=== PATIENT | female | born 1940 | race Caucasian/White ===

== ENCOUNTER 2016-07-19 03:08 | Inpatient (IN) ==
[2016-07-10 13:35] LABS: MANUAL DIFF NEEDED? NO
[2016-07-10 13:49] LABS: BASO% 0.8 % (0.0-0.8); EOS% 3.2 % (0.0-10.0); HEMATOCRIT 38.3 % (37.0-47.0); HEMOGLOBIN 12.4 g/dL (12.0-16.0); LYMPH# 2.93 X1000 (1.2-3.4); LYMPH% 46.6 % (20.5-51.1); MCH 31.3 PG (27-31); MCHC 32.4 g/dL (33-37); MCV 96.7 FL (81-99); MONO# 0.49 X1000 (0.11-0.59); MONO% 7.8 % (1.7-9.3); MPV 9.8 FL (7.4-10.4); NEUT% 41.6 % (42.2-75.2); PLT 281 X1000 (130-400); RBC 3.96 XMIL (4.2-5.4)
--- NOTE | 2016-07-10 13:54 | EKG Report ---
Test Performed on : 07/10/2016 1:15:13 PM Test Reason : surg Blood Pressure : / mmHG Vent. Rate : 082 BPM Atrial Rate : 082 BPM P-R Int : 162 ms QRS Dur : 072 ms QT Int : 362 ms P-R-T Axes : 079 063 074 degrees QTc Int : 422 ms Normal sinus rhythm. Normal ECG When compared with ECG of 08-JUN-2011 10:33, No significant change was found Confirmed by Steven KELLY, Timbo Braun ([id number]) on 07/12/2016 9:32:11 PM
[2016-07-10 14:06] LABS: AGAP 10; BUN 6 mg/dL (8-22); CHLORIDE 104 mmol/L (98-107); COSMO 284; POTASSIUM 5.1 mmol/L (3.5-5.1); SODIUM 144 mmol/L (136-145); TCO2 30 mmol/L (25-35)
[2016-07-19] MEDS ORDERED: INVANZ 1 GM/NS 1 GM/50 ML IVPB ONE (06:27)
[2016-07-19] MEDS ORDERED: LR 1,000 ML ONE ×3 (06:27→10:38)
[2016-07-19] MEDS ORDERED: MARCAINE 0.25% PF/EPI 1:200,000 ONE (07:10)
[2016-07-19] MEDS ORDERED: XYLOCAINE 1% ONE (07:11)
[2016-07-19] MEDS ORDERED: ENTEREG ONE (07:54)
[2016-07-19] MEDS ORDERED: ALBUMIN 25% ONE (08:30)
[2016-07-19 08:57] LABS: URINE CULTURE NEEDED? NO; URINE MICRO REVIEW NEEDED? NO; URINE SOURCE CATH
[2016-07-19 09:08] LABS: BILIRUBIN URINE NEGATIVE (NEGATIVE); BLOOD URINE NEGATIVE (NEGATIVE); COLOR YELLOW; GLUCOSE URINE NEGATIVE (NEGATIVE); LEUKOCYTES URINE NEGATIVE (NEGATIVE); NITRITE URINE NEGATIVE (NEGATIVE); PROTEIN URINE NEGATIVE (NEGATIVE); SP GRAVITY URINE 1.005; TURBIDITY URINE CLEAR (CLEAR); UROBILINOGEN URINE NORMAL (NORMAL)
[2016-07-19 09:10] LABS: UR EPITHELIAL CELLS <10 /HPF (<10); URINE BACTERIA NEGATIVE /HPF; URINE RBC <10 /HPF (<10); URINE WBC <10 /HPF (<10)
[2016-07-19] MEDS ORDERED: ZOFRAN ONE ×2 (10:42→12:57)
[2016-07-19] MEDS ORDERED: ULTRAM PO PRN (11:16)
[2016-07-19] MEDS ORDERED: ZOFRAN IV PRN (11:16)
[2016-07-19] MEDS ORDERED: FENTANYL ONE ×2 (11:32→11:33)
[2016-07-19] MEDS ORDERED: DIPRIVAN 1% ONE (11:34)
[2016-07-19] MEDS ORDERED: PERIDEX MT SCH (12:00)
[2016-07-19] MEDS ORDERED: DECADRON ONE (12:57)
[2016-07-19] MEDS ORDERED: NEOSPORIN OINTMENT PACKET ONE (12:57)
[2016-07-19] MEDS ORDERED: ROBINUL ONE (12:57)
[2016-07-19] MEDS ORDERED: NEOSTIGMINE ONE (12:57)
[2016-07-19] MEDS ORDERED: LR 2,000 ML ONE (12:57)
[2016-07-19] MEDS ORDERED: XYLOCAINE-MPF 2% ONE (12:57)
[2016-07-19] MEDS ORDERED: QUELICIN (DOSE) ONE (12:57)
[2016-07-19] MEDS: LR 1,000 ML IV SCH (17:21)
[2016-07-19] MEDS: OFIRMEV 1000 MG/ISOTONIC SOLN 1,000 MG/100 ML BOTTLE IV SCH (17:21)
[2016-07-20] MEDS: PERIDEX MT SCH ×3 (00:32→20:35)
[2016-07-20] MEDS: OFIRMEV 1000 MG/ISOTONIC SOLN 1,000 MG/100 ML BOTTLE IV SCH ×4 (00:32→16:31)
[2016-07-20] MEDS: LR 1,000 ML IV SCH ×3 (00:33→20:37)
[2016-07-20 06:13] LABS: MANUAL DIFF NEEDED? NO
[2016-07-20 06:16] LABS: BASO% 0.1 % (0.0-0.8); HEMATOCRIT 30.7 % (37.0-47.0); HEMOGLOBIN 10.1 g/dL (12.0-16.0); IMM GRAN# 0.02 X1000 (0.0-0.04); IMM GRAN% 0.2 % (0.0-0.5); LYMPH# 1.21 X1000 (1.2-3.4); LYMPH% 13.9 % (20.5-51.1); MCH 31.9 PG (27-31); MCHC 32.9 g/dL (33-37); MCV 96.8 FL (81-99); MONO# 1.01 X1000 (0.11-0.59); MONO% 11.6 % (1.7-9.3); MPV 10.7 FL (7.4-10.4); NEUT% 74.2 % (42.2-75.2); PLT 218 X1000 (130-400); RBC 3.17 XMIL (4.2-5.4)
--- NOTE | 2016-07-20 06:24 | OPERATIVE NOTE ---
PROCEDURE DATE: 07/19/2016 PREOPERATIVE DIAGNOSES: 1. Diverticulitis causing partial colon obstruction. 2. Right ovarian mass. POSTOPERATIVE DIAGNOSES: 1. Diverticulitis causing partial colon obstruction. 2. Right ovarian mass. PROCEDURE PERFORMED: 1. Sigmoid colectomy. 2. Right oophorectomy. SURGEON: Santi Arrington MD COMMERCIAL BAKER HELPER: MD Dr. Barry Moss was present from the beginning of the case to the end to facilitate exposure and identification of distorted anatomy by acute inflammatory process. COMPLICATIONS: None. ESTIMATED BLOOD LOSS: 50 mL. SPECIMENS: 1. Sigmoid colon. 2. Right ovary and salpinx. FINDINGS: There was a redundant sigmoid colon with evidence of acute and chronic inflammation. There was no pus, no evidence of perforation. However, the inflammation was causing acute angulation and stricturing of the mid and distal sigmoid colon. Proximal colon margin and the proximal rectum were all healthy and viable without any evidence of acute inflammation. OPERATIVE NOTE: Risks, benefits, alternatives discussed with the patient, she consented to the procedure. She was seen in the preoperative area and surgery to be performed was confirmed. She was taken to the operating room, placed in supine position. General anesthesia was induced without complication. Preincisional antibiotics were confirmed. She was placed in lithotomy and all bony prominence were padded and placed in neutral position. Her abdomen was prepped chlorhexidine solution, draped in the usual fashion. After a time-out was performed. A lower midline incision was made. The dimensions between her xiphoid process and her pubic symphysis was very small and there was not adequate distance to facilitate a laparoscopic portion of the operation. As such, we extended the incision from the level of her umbilicus to the level of the pubic symphysis and placed a large Louis wound retractor. There were some omental adhesions to the previous lower midline scar that were taken down using electrocautery. We packed small bowel and the cecum up into the patient's right and then mobilized the inflammatory adhesions to the left pelvic sidewall protecting the retroperitoneal structures. We were well away from the ureter throughout this portion. We mobilized this widely, freeing up the angulation it was clear there was a diseased section of the sigmoid colon. After identifying healthy portion of the proximal colon, we used a ASHLEY stapler blue load to divide this and the LigaSure device was used to take the mesentery of the sigmoid colon down to the level of healthy proximal rectum just below the sacral promontory at the level of the coalescence of the taenia. Using the TA stapler we divided this and passed the specimen off. The wound protector was present throughout this and there was no spillage of stool in this prepped colon. We packed the proximal staple line away, turned our attention to the right pelvic sidewall, where on CT scan there had been noted a right ovarian cystic mass. The ovary was small, but it was firm, and there were some small cysts, but there was concern for a mass here. As such, we performed an oophorectomy. It was quite redundant on the infundibulopelvic ligament. We identified the vasculature and the residual salpinx on this side. We identified the ureter as well and protected this. Using LigaSure device we divided the vessels and the tube and passed this off for permanent section. The left ovary was very small and atrophic, and there was no evidence of abnormality here. After confirming hemostasis, we irrigated the pelvis. Then we were able to sequentially pass up dilators from below. Dr. Reddy did this up to a size 28 mm easily. Then used a pursestring device, we cleaned up the distal colon margin, fired a purse-string, resected the staple line and placed a 28 mm anvil tying the pursestring around this. We then freed up some of the epiploic appendages and mesenteric fat here so that we had good healthy colon to create our anastomosis. Dr. Reddy passed the EEA 28 mm stapler up to the level of the anastomosis, deployed the spike. We made sure the colon was not twisted, closed the device and fired creating an end-to-end stapled anastomosis. Both donuts were intact and there was no tension at all. We did mobilize the descending colon along the white line of Toldt to give adequate laxity to the colon, this was a very floppy anastomosis. Placed this in the pelvis, filled the pelvis with water. Rigid proctoscope was used to insufflate the colon and no leak was noted. We suctioned free, confirmed hemostasis again. We placed the small bowel back in neutral position, removing all the laps. Placed omentum over the small bowel down into the pelvis around our anastomosis underneath the incision. Closed the fascia with # 1 looped PDS with interrupted 0 Vicryl retention sutures. Irrigated the superficial wound. Prior to fascial closure, we did change gloves and passed off all dirty towels and instruments. Closed the skin with davina. She tolerated the procedure well, there was no identified complication. Counts correct x2. I spoke with the family. She was awoken and transferred to the PACU in good condition. cc: Chavo Arrington MD MTD
[2016-07-20 06:46] LABS: AGAP 11; BUN 9 mg/dL (8-22); CALCIUM 9.5 mg/dL (8.8-10.2); CHLORIDE 103 mmol/L (98-107); COSMO 281; SODIUM 141 mmol/L (136-145); TCO2 27 mmol/L (25-35)
[2016-07-20] MEDS: LOVENOX SUBQ SCH (08:31)
[2016-07-20] MEDS: ENTEREG PO SCH ×2 (08:31→20:35)
[2016-07-20] MEDS: NEXIUM PO SCH (08:31)
[2016-07-20] MEDS: MAG-OX PO SCH (08:31)
[2016-07-21] MEDS: OFIRMEV 1000 MG/ISOTONIC SOLN 1,000 MG/100 ML BOTTLE IV SCH ×5 (00:20→22:12)
[2016-07-21] MEDS: LR 1,000 ML IV SCH ×4 (03:10→22:12)
[2016-07-21] MEDS: MAG-OX PO SCH (10:27)
[2016-07-21] MEDS: LOVENOX SUBQ SCH (10:27)
[2016-07-21] MEDS: PERIDEX MT SCH ×2 (10:27→22:13)
[2016-07-21] MEDS: NEXIUM PO SCH (10:27)
[2016-07-21] MEDS: ENTEREG PO SCH ×2 (10:27→22:13)
[2016-07-22] MEDS: OFIRMEV 1000 MG/ISOTONIC SOLN 1,000 MG/100 ML BOTTLE IV SCH ×2 (05:05)
[2016-07-22] MEDS: PERIDEX MT SCH ×2 (08:37→20:09)
[2016-07-22] MEDS: LOVENOX SUBQ SCH (08:38)
[2016-07-22] MEDS: NEXIUM PO SCH (08:38)
[2016-07-22] MEDS: MAG-OX PO SCH (08:38)
[2016-07-22] MEDS: ENTEREG PO SCH (08:38)
[2016-07-22] MEDS: TYLENOL PO SCH ×3 (09:55→20:10)
--- NOTE | 2016-07-22 14:14 | PROGRESS NOTE ---
DATE: 07/22/2016 SUBJECTIVE: The patient feels well. She is passing gas. Had some bowel movements. She is tolerating a diet. Mildly distended but no real pain. Not requiring pain medicine. She is ambulating. OBJECTIVE: Vital signs: Temperature is 98.5 degrees pulse is in the low 100s, blood pressure 147/71, oxygen saturation 95% on room air. General: She is alert. No acute distress. HEENT: There is no scleral icterus. Cardiovascular: Normal rate, regular rhythm. Abdomen: Soft. Appropriately tender. There is some bruising but no cellulitis. Her incision is otherwise is intact. LABORATORY: I reviewed her labs. There is nothing new today. ASSESSMENT AND PLAN: This is a 76-year-old female status post sigmoid colectomy. She is doing very well. She has had return of bowel function. Vital signs are appropriate. She is voiding. She is tolerating some p.o. but it remains a little distended on exam but not really tympanic. Will monitor her today, increase her ambulation, and ensure that she does well and does not experience more pain with ambulation. Plan for her home likely within the next 24-48 hours, depending on her progress. cc: Chavo Arrington MD
[2016-07-23] MEDS: TYLENOL PO SCH ×2 (03:04→10:04)
[2016-07-23 07:35] VITALS: BP 121/61
[2016-07-23] MEDS: PERIDEX MT SCH (10:04)
[2016-07-23] MEDS: MAG-OX PO SCH (10:04)
[2016-07-23] MEDS: NEXIUM PO SCH (10:04)
[2016-07-23] MEDS: LOVENOX SUBQ SCH (10:04)
--- NOTE | 2016-07-24 01:18 | DISCHARGE SUMMARY ---
ADMISSION DATE: 07/19/2016 DISCHARGE DATE: 07/23/2016 HISTORY OF PRESENT ILLNESS: This is a 76-year-old female who has had abdominal pain, bloating, early satiety, and has colonoscopy evidence of severe diverticulosis, with a diverticular-related stricture of the sigmoid colon. HOSPITAL COURSE: She was taken to the operating room on 07/19 for a sigmoid colectomy and a right oophorectomy for an ovarian mass on the right side. For details, please see dictated operative note. Postoperatively, she did well. Her diet was advanced per the ERAS protocol. She had return of bowel function. Fluids were opened and hep-locked, and the Reglan was stopped. Pain was controlled with alone, and this was transitioned to oral Tylenol. She had return of bowel function on postop day 3, was ambulating. Pain was controlled without narcotic medicines. Tolerating a soft diet. We kept her even at postop day 3 to ensure that her mobility was adequate, as she lives with her elderly at home, and to ensure that she continued to tolerate her diet, as she was mildly distended on postop day 3. This was all appropriate. Her incision was healing well. There was some bruising, but no signs of infection. Her abdomen was soft, nontender, nondistended, and she was voiding, tolerating a diet, and pain was controlled with Tylenol. She was felt safe for discharge home. FOLLOWUP: Followup appointment is with me on 07/30 for staple removal. At this point, it is already scheduled. DISCHARGE DIET: Discharge diet was discussed as low residual soft diet, and with Ensure supplements, which is what she has been on at home prior to this. MEDICATIONS: I encouraged her to take either Colace or MiraLAX, and titrate this according to her bowel movements. She has taken both of these preoperatively. Tylenol for pain, and any other home medications. DISCHARGE ACTIVITY: Call me with fevers greater than 101.5, draining purulence from her wound, nausea and vomiting, bleeding. She will avoid heavy lifting and begin gradually advancing her diet and activity as she tolerates. DISPOSITION: Home with self-care and the care of her . cc: Chavo Arrington MD
== END 2016-07-23 11:01 | disposition home or self-care (01) ==
LOC: SURHOLD 03:08 → 4N 11:15
PROVIDERS: ADMIT Surgery; ATTEND Surgery